=== PATIENT | female | born 1955 | race Caucasian/White ===

== ENCOUNTER 2020-06-01 18:34 | Emergency (ER) | payer MEDICARE, SELFPAY ==
[2020-06-01 18:42] VITALS: BP 128/91; PULSE 74; RESP 18; O2SAT 98; BMI 26.6
[2020-06-01 19:05] VITALS: BP 128/91; PULSE 74; RESP 18; TEMP 36.7; O2SAT 98; BMI 28.5
--- NOTE | 2020-06-01 19:35 | HMH.EDUTC ---
[facility] [place] Disposition Clinical Impression: Skin problem Disposition: Home, Self-Care Condition on Discharge: Good Instructions: Cephalexin, DI for Splinter Removal, Bacitracin Topical Additional Instructions: Warm showers to cleans the skin with antibacterial soap and water and apply ointment as prescribed Watch for signs of infection such as redness, streaks and drianage DO not pick at skin this can cause sores and cause infection Follow up with your Family Doctor if no improvement or any worsening of symptoms Straight to ER if any life threatening symptoms Take antibiotics as prescribed Prescriptions: Bacitracin [Bacitracin Oint 0.9GM UDP] 1 each TP TID #30 packet Transmission Status: Received by [facility] # cephALEXin [Keflex 500mg Cap] 500 mg PO Q6H 7 Days #28 cap Transmission Status: Received by [facility] # Referrals: PCP,No [Primary Care Provider] - As needed Time of Disposition: 19:49 Medical Decision Making - Joel Inquiry Pt receiving controlled substance: No Joel was queried for this patient: No Vital Signs: 06/01/20 18:42 06/01/20 19:05 Temperature 98.1 F Temperature Source Oral Pulse Rate [Radial] 74 74 Respiratory Rate 18 18 Blood Pressure [Right Arm] 128/91 H 128/91 H Blood Pressure Mean [Right Arm] 103 103 Blood Pressure Source [Right Arm] Automatic Cuff Automatic Cuff Blood Pressure Position [Right Arm] Sitting Sitting 02 Sat by Pulse Oximetry 98 98 Oxygen Delivery Method Room Air Room Air Orders (Tests/Meds): ED MEDICATIONS Discontinued Medications Generic Name Dose Route Start Last Admin Trade Name Margarita PRN Reason Stop Dose Admin Tetanus/Reduced Diphtheria/Acell Pertussis 0.5 ml 06/01/20 19:44 Tet/Diphth/Pert-Adult 0.5ml Syringe IM 06/01/20 19:45 .ONCE ONE Medical Decision Narrative: Patient educated to not pick at skin as this can cause sores on the skin and lead to infection No obvious foreign bodies noted under skin or felt with palpation [facility] [place] HPI - General Stated complaint: AO 05/15 fall hit metal/spinders Time Seen by Provider: 06/01/20 19:35 Mode of Arrival: Ambulatory Source of Information: Patient Limitations: No Limitations Description of Symptoms (Recalled from Triage Doc. by RN): States she fell through a floor 3 days ago. States that the next morning she woke up with multiple/thousands of metal splinters on her body. patient states that she has taken multiple of them out but she has one kidney and needs antibiotics to keep from getting cellulitis and she needs a tetanus shot. HEENT Symptoms (Recalled from RN notes): No Resp Symptoms (Recalled from RN notes): No Skin Symptoms (Recalled from RN notes): Yes MS Symptoms (Recalled from RN notes): No Functional Status (Recalled from RN notes): WNL - History of Present Illness Provider Complaint: Patient states that she was using a saw and it threw small metal shavings all over her about 3 weeks ago and then she was on a - Related Data Previous Rx's Medication Instructions Recorded Bacitracin [Bacitracin Oint 0.9GM 1 each TP TID #30 packet 06/01/20 UDP] cephALEXin [Keflex 500mg Cap] 500 mg PO Q6H 7 Days #28 cap 06/01/20 Allergies Allergy/AdvReac Type Severity Reaction Status Date / Time acetaminophen [From Vicodin] Allergy Verified 06/01/20 19:20 carbamazepine [From Tegretol] Allergy Verified 06/01/20 19:20 hydrocodone [From Vicodin] Allergy Verified 06/01/20 19:20 hydromorphone [From Dilaudid] Allergy Verified 06/01/20 19:20 phenytoin [From Dilantin] Allergy Verified 06/01/20 19:20 shellfish derived Allergy Verified 06/01/20 19:20 - Worker's Comp Is this a Worker's Comp case?: No [facility] History - Hepatitis A Screen Drug use history?: No High risk sexual behaviors?: No History of sexually transmitted infection?: No Currently employed?: No Childcare worker?: No Do you have indoor plumbing?: Yes Do you have electricity?: Yes
[2020-06-01 19:58] VITALS: BP 128/91; PULSE 74; RESP 18; TEMP 36.7; O2SAT 98
== END 2020-06-01 20:00 | disposition home or self-care (01) ==
PROVIDERS: Emergency Provider Nurse Practitioner
DX: S80.811A Abrasion, right lower leg, initial encounter (principal); S80.812A Abrasion, left lower leg, initial encounter; S40.812A Abrasion of left upper arm, initial encounter; S40.811A Abrasion of right upper arm, initial encounter; W22.8XXA Striking against or struck by other objects, initial encounter; Y92.017 Garden or yard in single-family (private) house as the place of occurrence of the external cause; Z88.5 Allergy status to narcotic agent; Z88.8 Allergy status to other drugs, medicaments and biological substances; Z23 Encounter for immunization
CPT/HCPCS: G0463; 90471; 90715; 99201